=== PATIENT | male | born 1960 | race Caucasian/White ===

== ENCOUNTER 2021-07-14 08:49 | Emergency (ER) | payer OTHER ==
[~2021-07-14 08:49] MED LIST: ASPIR 8181 MG PO; ATORVASTATIN CA80 MG PO; CLOPIDOGREL75 MG PO; FLEXERIL10 MG PO; MEDROL 4MG DOSEP4 MG PO; NORCO 5-325 TA1 EACH PO; POTASSIUM CHLO10 ME2 PO; TAMSULOSIN HCL0.4 MG PO; TOPROL XL 50 MG50 MG PO
[2021-07-14] MEDS ORDERED: KEFLEX250 MG PO (09:46)
[2021-07-15] MEDS ORDERED: ROBAXIN500 MG PO (15:40)
[2021-07-15] MEDS ORDERED: DICLOFENAC SODI50 MG PO (15:40)
== END 2021-07-14 10:10 | disposition home or self-care (01) ==
LOC: FER 08:49
DX: L30.8 Other specified dermatitis (principal); F17.210 Nicotine dependence, cigarettes, uncomplicated

== ENCOUNTER → 2021-07-22 | Day surgery (SDC) | payer OTHER ==
[~2021-07-22] VITALS: Ht 167.6 cm; Wt 68.0 kg
[~2021-07-22] MED LIST changes: +DICLOFENAC SODI50 MG PO; +KEFLEX250 MG PO; +ROBAXIN500 MG PO
== END | disposition home or self-care (01) ==
LOC: FAS 06:28
DX: Z12.11 Encounter for screening for malignant neoplasm of colon (principal); D12.5 Benign neoplasm of sigmoid colon; L72.0 Epidermal cyst; U07.1 COVID-19; I10 Essential (primary) hypertension; M19.90 Unspecified osteoarthritis, unspecified site; G89.4 Chronic pain syndrome; E78.00 Pure hypercholesterolemia, unspecified; F17.200 Nicotine dependence, unspecified, uncomplicated; Z80.0 Family history of malignant neoplasm of digestive organs; Z79.82 Long term (current) use of aspirin; Z79.02 Long term (current) use of antithrombotics/antiplatelets; Z79.899 Other long term (current) drug therapy; Z96.89 Presence of other specified functional implants
CPT/HCPCS: J2250; J2704; J7120

== ENCOUNTER → 2022-02-03 | Day surgery (SDC) | payer OTHER ==
[~2022-02-03] VITALS: Ht 167.6 cm; Wt 63.5 kg
[~2022-02-03] MED LIST changes: +ACETAMINOPHEN500 M1 PO; +COLACE100 MG PO; +MOTRIN600 MG PO; +OXY-IR 5MG5 MG PO
== END | disposition home or self-care (01) ==
LOC: FAS 07:14
DX: C44.622 Squamous cell carcinoma of skin of right upper limb, including shoulder (principal); I10 Essential (primary) hypertension; M19.90 Unspecified osteoarthritis, unspecified site; F17.210 Nicotine dependence, cigarettes, uncomplicated; Z79.82 Long term (current) use of aspirin; Z79.899 Other long term (current) drug therapy; Z72.89 Other problems related to lifestyle
CPT/HCPCS: J0690; J7120